=== PATIENT | female | born 1980 | race American Indian/Alaskan Native ===

== ENCOUNTER 2017-06-29 02:03 | Emergency (ER) | payer SELFPAY ==
[2017-06-29] MEDS ORDERED: TYLENOL PO ONE (05:36)
[2017-06-29 06:25] LABS: Basophils % (Auto) 0.2 % (0.0-1.8); Eosinophils % (Auto) 0.6 % (0.0-4.3); Hematocrit 37.6 % (30.3-42.9); Hemoglobin 12.9 gm/dl (10.1-14.3); Mean Corpuscular HGB Conc 35 % (30-34); Mean Corpuscular Hemoglobin 32 pg (28-32); Mean Corpuscular Volume 93 fl (79-97); Platelet Count 245 K/mm3 (140-440); Red Blood Count 4.05 M/mm3 (3.65-5.03); Red Cell Distribution Width 13.9 % (13.2-15.2); White Blood Count 10.6 K/mm3 (4.5-11.0)
[2017-06-29 06:32] LABS: Anion Gap 18 mmol/L; Blood Urea Nitrogen 15 mg/dL (7-17); Calcium 9.2 mg/dL (8.4-10.2); Carbon Dioxide 21 mmol/L (22-30); Chloride 101.5 mmol/L (98-107); Glucose 96 mg/dL (65-100); Potassium 4.3 mmol/L (3.6-5.0); Sodium 136 mmol/L (137-145)
--- NOTE | 2017-06-29 07:06 | XRay Report ---
FINAL REPORT EXAM: XR SHOULDER 2+V RT HISTORY: right shoulder pain COMPARISONS: None. FINDINGS: Two AP views views right shoulder Right glenohumeral joint appears intact. Acromioclavicular and coracoclavicular intervals are within normal limits. Mild acromioclavicular osteoarthrosis. No displaced fractures. Incomplete evaluation of the adjacent right lung is unremarkable. IMPRESSION: Mild acromioclavicular osteoarthrosis. No acute finding.
--- NOTE | 2017-06-29 07:10 | XRay Report ---
FINAL REPORT EXAM: XR FOOT BILAT 2V HISTORY: feet pain...bi lat foot pain COMPARISONS: None. FINDINGS: AP and lateral nonweightbearing views of both feet Right 2nd proximal phalanx minimally displaced fracture. No left foot fracture is seen. Mild midfoot osteoarthrosis. Calcaneal heel spurs and Achilles insertional enthesophytes are noted. IMPRESSION: Right 2nd proximal phalanx fracture is minimally displaced.
--- NOTE | 2017-06-29 07:41 | Cat Scan Report ---
FINAL REPORT EXAM: CT HEAD/BRAIN WO CON HISTORY: head injury TECHNIQUE: CT imaging acquired through the head without intravenous contrast. Transaxial reformations are provided. PRIORS: None. FINDINGS: The ventricles, cisterns and sulci are normal. No intraparenchymal or extra-axial mass, hemorrhage, or mass effect. Madrigal and white-matter differentiation is normal. Normal spherical shape of the globes. Paranasal sinuses and mastoid air cells are clear. No skull or facial fracture visualized. Right frontal scalp injury. IMPRESSION: No acute intracranial abnormality or skull fracture.
--- NOTE | 2017-06-29 07:43 | Cat Scan Report ---
FINAL REPORT EXAM: CT CERVICAL SPINE WO CON HISTORY: fall neck injury TECHNIQUE: CT imaging is acquired through the cervical spine without contrast. Transaxial, coronal and sagittal reformations are provided. PRIORS: None. FINDINGS: The cervical spine is intact. Vertebral body heights are preserved. No acute fracture or listhesis. Atlanto-dens interval and odontoid process are intact. Intervertebral disc spaces are preserved. No perivertebral soft tissue swelling or hematoma identified. Limited soft tissue exam of the visualized neck is unremarkable. IMPRESSION: No acute cervical spine fracture identified. Correlate with physical exam and follow up as warranted.
[2017-06-29 08:25] LABS: Bilirubin,Urine NEG (Negative); Blood,Urine NEG (Negative); Ketones,Urine NEG (Negative); Leukocyte Esterase,Urine TR (Negative); Mucus,Urine FEW /HPF; Nitrite,Urine NEG (Negative); Protein,Urine <15 mg/dL mg/dL (Negative); Urobilinogen,Urine < 2.0 mg/dL (<2.0)
--- NOTE | 2017-06-29 08:51 | Emergency Department Report ---
ED Fall HPI - General Chief Complaint: Fall Stated Complaint: FELL OF DECK; HEAD/NECK PAIN Time Seen by Provider: 06/29/17 08:46 Source: patient, family Mode of arrival: Ambulatory - History of Present Illness Initial Comments: Patient here reported that she fell off a six-foot deck at 1:30 in the morning and now reporting headache, right shoulder pain, neck pain and bilateral foot pain. Patient refused c-collar and triage. She said her pain is about a 10 on over but its worst in her right foot. Pain is located at right first and second toe. She was given Tylenol 975 mg by mouth in triage here but she said it didn't relieve her pain. She reports that her headache is also 10 out of 10 frontally. She said she did not hit her head and she did not lose consciousness. Denies any nausea or vomiting. Denies any numbness or tingling to extremities. She says she has a cut on her right big toe. Tetanus vaccine is not up-to-date. She did not take any medication for pain per patient's pain is worse with movement better resting. Patient says she does have a primary care doctor. She described pain as being achy MD Complaint: fall -: This morning Fall From: standing When Fall Occurred: 1-3 hours [employer]CROB[employer] Fall Witnessed: yes, by family Place Fall Occurred: home Loss of Consciousness: none Prolonged Down Time?: no Symptoms Prior to Fall: none Location: head, neck Location - Extremities: Left: Foot (Pain and abrasion rt great toe. Pain mostlt to rt second and 1st toe), Right: Shoulder (pain), Foot Severity: severe Severity scale (0 -10): 10 Quality: aching Context: tripped/slipped Associated Symptoms: headache, neck pain. denies: numbness, weakness, chest paint, shortness of breath, abdominal pain, hematuria, unable to walk, lightheaded, vertigo, confusion - Related Data Previous Rx's Medication Instructions Recorded Last Taken Type Acetaminophen/Codeine [Tylenol 1 tab PO Q6H PRN #12 tab 06/29/17 Unknown Rx /Codeine # 3 tab] Cephalexin [Keflex] 500 mg PO Q8HR #15 cap 06/29/17 Unknown Rx Ibuprofen [Motrin] 600 mg PO Q8H PRN #15 tablet 06/29/17 Unknown Rx Allergies Allergy/AdvReac Type Severity Reaction Status Date / Time No Known Allergies Allergy Verified 06/29/17 08:49 ED Review of Systems ROS: Stated complaint: FELL OF DECK; HEAD/NECK PAIN Other details as noted in HPI Comment: All other systems reviewed and negative Constitutional: no symptoms reported Respiratory: no symptoms reported Cardiovascular: denies: chest pain, palpitations, edema, syncope Gastrointestinal: denies: abdominal pain, nausea, vomiting, diarrhea, constipation, hematemesis, melena, hematochezia Genitourinary: denies: urgency, dysuria, frequency, hematuria, discharge, abnormal menses, dyspareunia Musculoskeletal: arthralgia. denies: back pain, joint swelling, myalgia Skin: other (cut RT big toe) Neurological: headache, abnormal gait (due to right toe pain.). denies: weakness, numbness, paresthesias, confusion ED Past Medical Hx - Past Medical History Previous Medical History?: Yes Additional medical history: Ectopic - Surgical History Past Surgical History?: Yes Additional Surgical History: Left Tubal ectopic - Family History Family history: hypertension - Social History Smoking Status: Current Every Day Smoker Substance Use Type: Alcohol - Medications Home Medications: Home Medications Medication Instructions Recorded Confirmed Last Taken Type Acetaminophen/Codeine [Tylenol 1 tab PO Q6H PRN #12 tab 06/29/17 Unknown Rx /Codeine # 3 tab] Cephalexin [Keflex] 500 mg PO Q8HR #15 cap 06/29/17 Unknown Rx Ibuprofen [Motrin] 600 mg PO Q8H PRN #15 tablet 06/29/17 Unknown Rx ED Physical Exam - General Limitations: No Limitations General appearance: alert, in no apparent distress - Head Head exam: Present: atraumatic, normocephalic, normal inspection - Expanded Head Exam Expanded Head exam: Absent: laceration, abrasion, contusion, hematoma, racoon eyes, leroy's sign, general tenderness, tenderness of temporal artery, CSF rhinorrhea , CSF otorrhea - Eye Eye exam: Present: normal appearance, PERRL, EOMI. Absent: nystagmus, periorbital swelling, periorbital tenderness Pupils: Present: normal accommodation - ENT ENT exam: Present: normal exam, normal orophraynx, mucous membranes moist, TM's normal bilaterally, normal external ear exam - Neck Neck exam: Present: normal inspection, full ROM. Absent: tenderness, meningismus, lymphadenopathy - Expanded Neck Exam Expanded Neck exam: Absent: tenderness, midline deformity, anterior neck swelling, thyroid mass, carotid bruit, tracheal deviation - Respiratory Respiratory exam: Present: normal lung sounds bilaterally. Absent: respiratory distress, wheezes, rales, rhonchi, stridor, chest wall tenderness, accessory muscle use, decreased breath sounds, prolonged expiratory - Cardiovascular Cardiovascular Exam: Present: regular rate, normal rhythm, normal heart sounds. Absent: systolic murmur, diastolic murmur - GI/Abdominal GI/Abdominal exam: Present: soft, normal bowel sounds. Absent: distended, tenderness, guarding, rebound, rigid, organomegaly, mass, bruit, pulsatile mass , hernia - Extremities Exam Extremities exam: Present: normal inspection, full ROM, tenderness (tender to palpate to the right second and first toe. Left foot to include toes without any tenderness or swelling.), normal capillary refill, other (bilateral upper and lower extremity with 2+ pulses. No clubbing, cyanosis or edema. Limited range of motion to right second toe otherwise normal. Capillary refill is less than 3 seconds, small abrasion noted to right great toe. No neurovascular compromise to her extremities. Patient able to ambulate but she limps as her right foot due to injury. Normal sensation.). Absent: pedal edema, joint swelling, calf tenderness - Back Exam Back exam: Present: normal inspection, full ROM. Absent: tenderness, CVA tenderness (R), CVA tenderness (L), muscle spasm, paraspinal tenderness, vertebral tenderness, rash noted - Neurological Exam Neurological exam: Present: alert, oriented X3, abnormal gait (patient limp into the right foot due to injury), reflexes normal. Absent: motor sensory deficit - Expanded Neurological Exam Expanded Neurological exam: Absent: innattentive, memory loss-remote event, memory loss- recent event, ataxia, receptive aphasia, expressive aphasia, total aphasia, tremor, protecting the airway Patient oriented to: Present: person, place, time Speech: Present: fluid speech Cranial nerves: EOM's Intact: Normal, Gag Reflex: Normal, Tongue Deviation: Normal, Nystagmus: Normal, Facial Sensation: Normal Cerebellar function: Romberg: Normal Upper motor neuron: Pronator Drift: Normal, Sensory Extinction: Normal Sensory exam: Upper Extremity Light Touch: Normal, Upper Extremity Temperature: Normal, UE 2 Point Discrimination: Normal, Lower Extremity Light Touch: Normal, Lower Extremity Temperature: Normal, LE 2 Point Discrimination: Normal Motor strength exam: RUE: 5, LUE: 5, RLE: 5, LLE: 5 DTR: bicep (R): 2+, bicep (L): 2+, tricep (R): 2+, tricep (L): 2+, knee (R): 2+ , knee (L): 2+, ankle (R): 2+, ankle (L): 2+ Best Eye Response ([place]): (4) open spontaneously Best Motor Response ([place]): (6) obeys commands Best Verbal Response ([place]): (5) oriented Ellie Total: 15 - Psychiatric Psychiatric exam: Present: normal affect, normal mood - Skin Skin exam: Present: warm, dry, intact, normal color, abrasion (right great toe) . Absent: cyanosis, diaphoretic, erythema, urticaria, petechiae, pallor ED Course Vital Signs 06/29/17 06/29/17 06/29/17 02:03 05:16 09:27 Temperature 98.7 F 98.7 F 98.5 F Pulse Rate 89 89 78 Respiratory 18 18 Rate Blood Pressure 112/70 Blood Pressure 112/70 109/62 [Left] O2 Sat by Pulse 97 98 Oximetry - Reevaluation(s) Reevaluation #1: 06/29/17 09:21 Patient with right second toe fracture. See procedure note for details on splinted. She also has an abrasion to her right great toe. Boostrix 0.5 mL and [place] 5/325 2 tablets given in emergency room. 06/29/17 09:22 - Orthopedic Splinting/Casting Injury #1 Side: right Upper Extremity Immobilizer: renay tape Lower Extremity Injury Location: toe (renay taped right second toe to right third toe.) Lower Extremity Immobilizer: post-op shoe Additional Comments: Patient with fracture to proximal falling that is minimal displayed to right second toe. ED Medical Decision Making - Lab Data Result diagrams: 06/29/17 06:00 06/29/17 06:00 Lab Results 06/29/17 06/29/17 06/29/17 Range/Units 06:00 06:00 06:00 WBC 10.6 (4.5-11.0) K/mm3 RBC 4.05 (3.65-5.03) M/mm3 Hgb 12.9 (10.1-14.3) gm/dl Hct 37.6 (30.3-42.9) % MCV 93 (79-97) fl MCH 32 (28-32) pg MCHC 35 H (30-34) % RDW 13.9 (13.2-15.2) % Plt Count 245 (140-440) K/mm3 Lymph % (Auto) 21.0 (13.4-35.0) % [place] % (Auto) 7.5 H (0.0-7.3) % Eos % (Auto) 0.6 (0.0-4.3) % Baso % (Auto) 0.2 (0.0-1.8) % Lymph # 2.2 (1.2-5.4) K/mm3 [place] # 0.8 (0.0-0.8) K/mm3 Eos # 0.1 (0.0-0.4) K/mm3 Baso # 0.0 (0.0-0.1) K/mm3 Seg Neutrophils % 70.7 H (40.0-70.0) % Seg Neutrophils # 7.5 (1.8-7.7) K/mm3 Sodium 136 L (137-145) mmol/L Potassium 4.3 (3.6-5.0) mmol/L Chloride 101.5 (98-107) mmol/L Carbon Dioxide 21 L (22-30) mmol/L Anion Gap 18 mmol/L BUN 15 (7-17) mg/dL Creatinine 0.5 L (0.7-1.2) mg/dL Estimated GFR > 60 ml/min BUN/Creatinine Ratio 30.00 % Glucose 96 (65-100) mg/dL Calcium 9.2 (8.4-10.2) mg/dL HCG, Qual Negative (Negative) Urine Color (Yellow) Urine Turbidity (Clear) Urine pH (5.0-7.0) Ur Specific [place] (1.003-1.030) Urine Protein (Negative) mg/dL Urine Glucose (UA) (Negative) mg/dL Urine Ketones (Negative) mg/dL Urine Blood (Negative) Urine Nitrite (Negative) Urine Bilirubin (Negative) Urine Urobilinogen (<2.0) mg/dL Ur Leukocyte Esterase (Negative) Urine WBC (Auto) (0.0-6.0) /HPF Urine RBC (Auto) (0.0-6.0) /HPF U Epithel Cells (Auto) (0-13.0) /HPF Urine Mucus /HPF 06/29/17 Range/Units 07:50 WBC (4.5-11.0) K/mm3 RBC (3.65-5.03) M/mm3 Hgb (10.1-14.3) gm/dl Hct (30.3-42.9) % MCV (79-97) fl MCH (28-32) pg MCHC (30-34) % RDW (13.2-15.2) % Plt Count (140-440) K/mm3 Lymph % (Auto) (13.4-35.0) % [place] % (Auto) (0.0-7.3) % Eos % (Auto) (0.0-4.3) % Baso % (Auto) (0.0-1.8) % Lymph # (1.2-5.4) K/mm3 [place] # (0.0-0.8) K/mm3 Eos # (0.0-0.4) K/mm3 Baso # (0.0-0.1) K/mm3 Seg Neutrophils % (40.0-70.0) % Seg Neutrophils # (1.8-7.7) K/mm3 Sodium (137-145) mmol/L Potassium (3.6-5.0) mmol/L Chloride (98-107) mmol/L Carbon Dioxide (22-30) mmol/L Anion Gap mmol/L BUN (7-17) mg/dL Creatinine (0.7-1.2) mg/dL Estimated GFR ml/min BUN/Creatinine Ratio % Glucose (65-100) mg/dL Calcium (8.4-10.2) mg/dL HCG, Qual (Negative) Urine Color Yellow (Yellow) Urine Turbidity Clear (Clear) Urine pH 5.0 (5.0-7.0) Ur Specific [place] 1.028 (1.003-1.030) Urine Protein <15 mg/dl (Negative) mg/dL Urine Glucose (UA) Neg (Negative) mg/dL Urine Ketones Neg (Negative) mg/dL Urine Blood Neg (Negative) Urine Nitrite Neg (Negative) Urine Bilirubin Neg (Negative) Urine Urobilinogen < 2.0 (<2.0) mg/dL Ur Leukocyte Esterase Tr (Negative) Urine WBC (Auto) 1.0 (0.0-6.0) /HPF Urine RBC (Auto) 3.0 (0.0-6.0) /HPF U Epithel Cells (Auto) 2.0 (0-13.0) /HPF Urine Mucus Few /HPF - Radiology Data Radiology results: report reviewed CT scan of the head revealed no acute finding CT scan of the cervical spine revealed no acute findings X-ray of feet revealed right second proximal phalanx fracture which is minimally displaced. X-ray of right shoulder reveal no acute finding except for mild AC joint osteoarthritis - Medical Decision Making ED course: Patient here status post fall and off back and she reports that it was about 6 feet that she fell and landed on grass. She is reporting headache without any head injury or loss of consciousness neck and right shoulder pain and bilateral foot pain. CT scan of the head and cervical spine reveal no acute findings. X-ray of right shoulder revealed mild osteoarthritis AC joint. X-ray of both feet revealed right second proximal phalanx with fracture with mild displacement. Patient had lab work done CBC normal BMP normal except she has sodium is 136 which is mildly decreased and CO2 of 21 which is mildly decreased. Her serum test was negative and urinalysis negative. I discussed lab report and CT scan, x-ray reports with patient along with finding for fracture of the second toe. Diagnosis and treatment plan explained to patient and she voiced understanding. She given Tylenol 975 mg in triage area which did not leave her pain therefore she was given milk of 5/325 2 tablets for pain into her right foot at second and first toe and she voiced that her pain is relieved only painful when she puts pressure on her right foot. Has abrasion to her right great toe and she was given Boostrix 0.5 mL to update her tetanus. Area cleansed with normal saline and Band-Aid dressing placed inside. Right second toe renay taped to her right third toe and patient went off the shoe and instructed to follow-up with orthopedic doctor in 2-3 days. I also instructed her if she does not have a primary care physician she needs to follow up at [facility] to call tomorrow to schedule appointment status post fall with pain. Patient given prescription for Keflex for right great toe abrasion, Tylenol 3 and Motrin. Critical care attestation.: If time is entered above; I have spent that time in minutes in the direct care of this critically ill patient, excluding procedure time. ED Disposition Clinical Impression: Neck pain, acute, Arthralgia of multiple sites Fall, accidental Qualifiers: Encounter type: initial encounter Qualified Code(s): W19.XXXA - Unspecified fall, initial encounter Headache Qualifiers: Headache type: post-traumatic Headache chronicity pattern: acute headache Intractability: not intractable Qualified Code(s): G44.319 - Acute post- traumatic headache, not intractable Osteoarthritis of right shoulder Qualifiers: Osteoarthritis type: unspecified Qualified Code(s): M19.011 - Primary osteoarthritis, right shoulder Fracture of second toe, right, closed Qualifiers: Encounter type: initial encounter Qualified Code(s): S92.501A - Displaced unspecified fracture of right lesser toe(s), initial encounter for closed fracture Abrasion of toe of right foot Qualifiers: Encounter type: initial encounter Qualified Code(s): S90.414A - Abrasion, right lesser toe(s), initial encounter Disposition: DC- TO HOME OR SELFCARE Is pt being admited?: No Does the pt Need Aspirin: No Condition: Stable Instructions: Toe Fracture (ED), Arthralgia (ED), Osteoarthritis (ED), Acute Headache (ED), RICE Therapy (ED), Abrasion (ED) Additional Instructions: Please follow up with primary care as recommended, if you do not have a primary care he can follow-up at [facility] Referred to discharge instruction on splint care. Referred to discharge instruction in Rice therapy. These follow-up with orthopedic doctor as instructed. Please keep affected area clean and dry Do not drive or operate heavy machinery while taking Tylenol No. 3 as this medication will cause drowsiness Prescriptions: Acetaminophen/Codeine [Tylenol /Codeine # 3 tab] 1 tab PO Q6H PRN #12 tab PRN Reason: Pain Cephalexin [Keflex] 500 mg PO Q8HR #15 cap Ibuprofen [Motrin] 600 mg PO Q8H PRN #15 tablet PRN Reason: Pain Referrals: [facility] [Outside] - 07/01/17 ERIC PHAM MD [Staff Physician] - 2-3 Days Forms: Work/School Release Form(ED)
[2017-06-29] MEDS ORDERED: NORCO 5/325 PO ONE (09:19)
[2017-06-29] MEDS ORDERED: BOOSTRIX IM ONE (09:19)
[2017-06-29 09:29] VITALS: BP 109/62
== END 2017-06-29 11:32 | disposition home or self-care (01) ==
LOC: ED 02:03
DX: S92.501A Displaced unspecified fracture of right lesser toe(s), initial encounter for closed fracture (principal); G44.319 Acute post-traumatic headache, not intractable; S90.411A Abrasion, right great toe, initial encounter; M19.011 Primary osteoarthritis, right shoulder; M54.2 Cervicalgia; W17.89XA Other fall from one level to another, initial encounter; Y93.89 Activity, other specified; Y92.89 Other specified places as the place of occurrence of the external cause; Y99.8 Other external cause status
CPT/HCPCS: 36415; 70450; 72125; 80048; 81001; 84703; 85025; 90471; 90715